=== PATIENT | male | born 1970 | race Caucasian/White ===

== ENCOUNTER 2016-12-04 14:25 | Emergency (ER) | payer OTHER ==
--- NOTE | ~2016-12-04 | CR253 ---
[facility] A Service of [facility] RADIOLOGY TEXT RESULTS PATIENT: MADHU MCHUGH LOCATION: SED : 68 UNIT #: [id number] AGE: [address]: Cassidy Castellanos SEX: M ORDER DR: [id number] [address] [address] [id number] E MR#: [id number] Acc #: [id number] NAME: MADHU MCHUGH : 1970 SEX: M STUDY DATE/TIME: 12/04/2016 14:42 UNIT: SED ROOM: STUDY DESCRIPTION: CR Tibia and Fibula 2 Views Rt Attending Physician: Cassidy Castellanos P.A.-C. Ordering Physician: Cassidy Castellanos P.A.-C. Primary Care Physician: Konrad Stroud M.D. MEDICAL IMAGING REPORT This report is preliminary unless electronic signature is present. EXAM Right tibia-fibula series HISTORY Trauma. Slipped on stairs. Rolled ankle. Ankle injury. Pain lateral medial tib-fib, medial anterior ankle. Symptoms began evening 12/03/2016. TECHNIQUE AP and lateral radiographs of the right tibia and fibula are presented. COMPARISON Comparison to right ankle series November 2011. FINDINGS Old healed proximal right fibular fracture. Degenerative and post-traumatic changes distal tibia and fibula with generalized narrowing of the ankle mortise joint. There has been interval removal of previously seen fibular and tibial orthopedic fixation screws. There is no acute fracture or traumatic malalignment. There is mild generalized narrowing of all 3 joint space compartments. No soft tissue defect, subcutaneous air, or radiodense foreign body seen. Dictated by... Madhu Singh M.D. THIS IS AN ELECTRONICALLY VERIFIED REPORT Madhu Singh M.D. at 12/04/2016 6:31 PM JAKE/fernando TD: 12/04/2016 17:43 JOB #: [id number] [facility] A Service of [facility] RADIOLOGY TEXT RESULTS PATIENT: MADHU MCHUGH LOCATION: SED : [birth year] UNIT #: [id number] AGE: [address]: Cassidy Castellanos SEX: M ORDER DR: MEDICAL IMAGING REPORT Page 1 of 1
--- NOTE | ~2016-12-04 | CR21 ---
[facility] A Service of [facility] RADIOLOGY TEXT RESULTS PATIENT: MADHU MCHUGH LOCATION: SED : [birth year] UNIT #: [id number] AGE: [address]: Cassidy Castellanos SEX: M ORDER DR: [id number] [address] [address] [id number] E MR#: [id number] Acc #: [id number] NAME: MADHU MCHUGH : 1970 SEX: M STUDY DATE/TIME: 12/04/2016 14:42 UNIT: SED ROOM: STUDY DESCRIPTION: CR Ankle Min 3 Views Rt Attending Physician: Cassidy Castellanos P.A.-C. Ordering Physician: Cassidy Castellanos P.A.-C. Primary Care Physician: Konrad Stroud M.D. MEDICAL IMAGING REPORT This report is preliminary unless electronic signature is present. EXAM Right ankle series dated 12/04/2016. COMPARISON Left ankle series dated 11/06/2016. Right ankle series dated 11/14/2011. HISTORY Patient slipped on stairs and rolled ankle on 12/03/2016. Right ankle pain. FINDINGS 3 views of the right ankle were obtained. There were 3 screws in the distal right tibia, 2 involving the medial malleolus, in the prior study from 2001. They are now not seen. Sclerotic bony changes are, however, noted in this region and they are probably related to chronic postoperative change. Faint screw tract is seen. No superimposed acute displaced fracture or dislocation is seen. There is some soft tissue swelling overlying the medial malleolus in 1 of the views but it is not well-correlated in other views. Well-defined bony fragment is noted distal to the medial malleolar tip region, probably related to the old trauma. IMPRESSION 1. Patient is known to have screws in the distal tibia internally fixing medial malleolar fracture. Screws have been removed in the interval with postoperative changes and sclerotic changes. 2. There appear to be some well-corticated bony fragments and changes distal to the medial malleolar tip, likely due to the old trauma. 3. No acute displaced fracture or dislocation. 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 [facility] A Service of [facility] RADIOLOGY TEXT RESULTS PATIENT: MADHU MCHUGH LOCATION: [facility] : [birth year] UNIT #: [id number] AGE: [address]: Cassidy Castellanos SEX: M ORDER DR: Dictated by... Steve Laguerre M.D. THIS IS AN ELECTRONICALLY VERIFIED REPORT Steve Laguerre M.D. at 12/05/2016 4:27 PM CPR/pcl TD: 12/04/2016 17:29 JOB #: [id number] MEDICAL IMAGING REPORT Page 1 of 1
[~2016-12-04 14:25] MED LIST: ALPRAZOLAM PO; AMBIEN PO; AVAPRO300 M1 PO; BACTRIM DS TABL1 TA1 PO; CLINDAMYCIN HC300 MG PO; DAZIDOX10 MG PO; DIOVAN320 MG PO; GENTAK3.5 GM OP; IBUPROFEN PO; KEFLEX500 M1 PO; LOSARTAN POTASS50 MG PO; MOBIC PO; OXYCONTIN15 MG PO; SOMA250 MG PO; VICODIN 5/1 TAB 5/50 PO; VICODIN PO
[2016-12-04] MEDS ORDERED: LISINOPRIL20 MG PO (14:30)
== END 2016-12-04 15:55 | disposition home or self-care (01) ==
LOC: SED 14:25
DX: S93.491A Sprain of other ligament of right ankle, initial encounter (principal); F17.210 Nicotine dependence, cigarettes, uncomplicated; X50.1XXA Overexertion from prolonged static or awkward postures, initial encounter; Y92.009 Unspecified place in unspecified non-institutional (private) residence as the place of occurrence of the external cause
CPT/HCPCS: 29515; 73590; 73610; 99283